=== PATIENT | female | born 1945 | race Caucasian/White ===

== ENCOUNTER 2016-09-14 12:01 | Emergency (ER) | payer MEDICARE, SELFPAY ==
[2016-09-14 12:45] LABS: PH,URINE 6.5 (5.0 - 9.0); URINE BACTERIA 1+ (NONE SEEN); URINE BILIRUBIN NEGATIVE (NEGATIVE); URINE BLOOD TRACE (NEGATIVE); URINE GLUCOSE (UA) NORMAL (NORMAL); URINE KETONE NEGATIVE (NEGATIVE); URINE LEUKOCYTE ESTERASE 2+ (NEGATIVE); URINE NITRATE NEGATIVE (NEGATIVE); URINE PROTEIN TRACE (NEGATIVE); URINE RBC 0-5 /[HPF] (0-2); URINE YEAST FEW (NONE SEEN)
[2016-09-14 12:57] LABS: BASO % 0.2 % (0.1-1.2); EOS % 0.2 % (0.7-5.8); GRAN # 4.7 10_X3_uL (1.6-6.1); GRAN % 77.7 % (34.0-71.1); HEMATOCRIT 40.8 % (34-45); HEMOGLOBIN 13.9 g/dL (11.2-15.7); LYMPH # 0.9 10_X3_uL (1.2-3.7); LYMPH % 14.9 % (19.3-51.7); MEAN CORPUSCULAR HGB CONC 34.1 g/dL (32.0-36.0); MEAN CORPUSCULAR VOLUME 93.8 fL (79-95); MEAN PLATELET VOLUME 10.3 fl (7.5-11.5); MONO # 0.4 10_X3_uL (0.2-0.9); PLATELET COUNT 137 x10_3/uL (182-369); RED BLOOD COUNT 4.35 x10_6/uL (3.9-5.2); RED CELL DISTRIBUTION WIDTH 12.8 % (11.7-14.4); WHITE BLOOD COUNT 6.1 x10_3/uL (4.0-10.0)
[2016-09-14 13:09] LABS: ARTERIAL BLD GAS O2 SATURATION 93.5 % (94-98); ARTERIAL BLOOD GAS pH 7.43 (7.35-7.45)
[2016-09-14 13:38] LABS: ALBUMIN 3.7 gm/dL (3.4-5.0); ALKALINE PHOSPHATASE 77 U/L (50-136); ALT/SGPT 23 U/L (3.5-33.9); AST/SGOT 25 U/L (7.04-26.96); BILIRUBIN,TOTAL 0.21 mg/dL (0.0-1.0); BLOOD UREA NITROGEN 8 mg/dL (7-18); CALCIUM 8.2 mg/dL (8.7-10.7); CARBON DIOXIDE 25 mmol/L (21-32); CREATININE 0.8 mg/dL (0.6-1.3); GLUCOSE,RANDOM 148 mg/dL (70-99); POTASSIUM 3.8 mmol/L (3.5-5.1); SODIUM 132 mmol/L (136-145); TOTAL PROTEIN 7.2 gm/dL (6.4-8.2)
== END 2016-09-14 14:50 | disposition home or self-care (01) ==
LOC: ER 12:01
PROVIDERS: General Practice
DX: J10.1 Influenza due to other identified influenza virus with other respiratory manifestations (principal); J84.9 Interstitial pulmonary disease, unspecified; N39.0 Urinary tract infection, site not specified; M25.561 Pain in right knee; M19.90 Unspecified osteoarthritis, unspecified site; J45.909 Unspecified asthma, uncomplicated; I10 Essential (primary) hypertension; Z79.899 Other long term (current) drug therapy
CPT/HCPCS: 36415; 36600; 71020; 73564; 80053; 81001; 82803; 83605; 85025; 87040; 87400; 94664; 96365; 99070; 99283-25; 99284